=== PATIENT | female | born 1960 | race American Indian/Alaskan Native ===

== ENCOUNTER 2016-11-14 13:35 | Emergency (ER) | payer MEDICAID ==
[2016-11-14 13:53] VITALS: PULSE 52; RESP 18; TEMP 98.5
--- NOTE | 2016-11-14 14:30 | ED PDOC ---
Arrival/HPI - General Chief Complaint: Back Pain Time Seen by Provider: 11/14/16 14:09 Historian: Patient - History of Present Illness Narrative History of Present Illness (Text): 11/14/16 14:29 A 56 year old female presents to the emergency department complaining of left lower back pain for the past 3 weeks. Patient notes radiating pain down her left lower extremity and left shoulder pain. Patient states her pain is exacerbating with ambulation and relieved at rest. Patient denies any trauma, fever, nausea, vomiting, diarrhea, abdominal pain, urinary symptoms, chest pain , shortness of breath or any other complaints. PMD: Dr. Armenta Time/Duration: Other (3 weeks) Symptom Course: Unchanged Quality: Other Context: Other Past Medical History - Provider Review Nursing Documentation Reviewed: Yes - Infectious Disease Hx of Infectious Diseases: None - Cardiac Hx Hypertension: Yes Other/Comment: Bradycardic. Valve problem unsure as per patient. - Psychiatric Hx Substance Use: No - Surgical History Hx Section: Yes Family/Social History - Physician Review Nursing Documentation Reviewed: Yes Family/Social History: No Known Family HX Smoking Status: Never Smoked Hx Alcohol Use: No Hx Substance Use: No Allergies/Home Meds Allergies/Adverse Reactions: Allergies No Known Allergies Allergy (Verified 03/15/16 10:06) Home Medications: Home Meds Medication Instructions Recorded Confirmed Lisinopril 12.5 mg PO DAILY 01/29/15 10/14/15 Lisinopril [Prinivil] 12.5 mg PO DAILY 11/14/16 11/14/16 Review of Systems - Physician Review All systems were reviewed & negative as marked: Yes - Review of Systems Constitutional: absent: Fevers Respiratory: absent: SOB Cardiovascular: absent: Chest Pain Gastrointestinal: absent: Abdominal Pain, Diarrhea, Nausea, Vomiting Genitourinary Female: absent: Dysuria, Frequency, Hematuria, Urine Output Changes Musculoskeletal: Back Pain (Left lower back pain radiating down left lower extremity, Left shoulder pain) Physical Exam Vital Signs Reviewed: Yes Vital Signs Temp Pulse Resp BP Pulse Ox 11/14/16 13:45 98.5 F 52 L 18 170/89 H 100 Temperature: Afebrile Blood Pressure: Hypertensive Pulse: Bradycardic Respiratory Rate: Normal Appearance: Positive for: Well-Appearing, Non-Toxic, Comfortable Pain Distress: None Mental Status: Positive for: Alert and Oriented X 3 - Systems Exam Head: Present: Atraumatic, Normocephalic Pupils: Present: PERRL Extroacular Muscles: Present: EOMI Conjunctiva: Present: Normal Mouth: Present: Moist Mucous Membranes Neck: Present: Normal Range of Motion Respiratory/Chest: Present: Clear to Auscultation, Good Air Exchange. No: Respiratory Distress, Accessory Muscle Use Cardiovascular: Present: Regular Rate and Rhythm, Normal S1, S2. No: Murmurs Abdomen: Present: Normal Bowel Sounds. No: Tenderness, Distention, Peritoneal Signs Back: Present: Paraspinal Tenderness (Mild thoracic paraspinal tenderness), Other (Left lower lumbar tenderness, No sciatic notch tenderness) Upper Extremity: Present: Normal Inspection, Normal ROM, NORMAL PULSES, Neurovascularly Intact. No: Cyanosis, Edema, Tenderness, Swelling, Erythema, Temperature Abnormalties, Deformity Lower Extremity: Present: NORMAL PULSES, Normal ROM, Tenderness (Left thigh tenderness), Neurovascularly Intact. No: Edema, Swelling, Erythema, Deformity, Temperature Abnormalties Neurological: Present: GCS=15, CN II-XII Intact, Speech Normal Skin: Present: Warm, Dry, Normal Color. No: Rashes Psychiatric: Present: Alert, Oriented x 3, Normal Insight, Normal Concentration Medical Decision Making ED Course and Treatment: 11/14/16 14:29 Impression: A 56 year old female with left lower back pain radiating down left lower extremity. Patient notes left shoulder pain. She denies any trauma or other complaints. Differential Diagnosis included but are not limited to: Musculoskeletal Plan: -- D-dimer -- Motrin -- Reassess and disposition Progress Notes: EKG shows sinus bradycardia at 45 BPM with LVH, no changes from prior on or 10/15/15. Interpreted by me. 11/14/16 16:38 Patient's dimer is negative. Patient feels better and is able to ambulate. She will be discharged home with motrin and if needed flexeril PRN. - Lab Interpretations Lab Results: Lab Results 11/14/16 15:38: D-Dimer, Quantitative 0.39 - Medication Orders Current Medication Orders: Discontinued Medications Ibuprofen (Motrin Tab) 600 mg PO STAT STA Stop: 11/14/16 14:54 Last Admin: 11/14/16 15:20 Dose: 600 MG MAR Pain/Vitals Document 11/14/16 15:20 MANAGER OF PROGRAM (Rec: 11/14/16 15:22 [facility] [id number]) Pain Reassessment Is This A Pain ReAssessment? No - Scribe Statement The provider has reviewed the documentation as recorded by the Scribpedro Kruger Provider Scribe Attestation: All medical record entries made by the Scribe were at my direction and personally dictated by me. I have reviewed the chart and agree that the record accurately reflects my personal performance of the history, physical exam, medical decision making, and the department course for this patient. I have also personally directed, reviewed, and agree with the discharge instructions and disposition. Disposition/Present on Arrival - Present on Arrival Any Indicators Present on Arrival: No History of DVT/PE: No History of Uncontrolled Diabetes: No Urinary Catheter: No History of Decub. Ulcer: No History Surgical Site Infection Following: None - Disposition Have Diagnosis and Disposition been Completed?: Yes Diagnosis: Low back strain Disposition: HOME/ ROUTINE Disposition Time: 16:39 Patient Plan: Discharge Patient Problems: Current Active Problems Problem Status Diagnosed Low back strain Chronic Condition: IMPROVED Discharge Instructions (ExitCare): Sciatica (ED), Lumbar Radiculopathy (ED) Additional Instructions: Vaughn, thank you for letting us take care of you today. Your provider was Dr. Mclaughlin. You were treated for Back Pain, Sciatica The emergency medical care you received today was directed at your acute symptoms. If you were prescribed any medication, please fill it and take as directed. It may take several days for your symptoms to resolve. Return to the Emergency Department if your symptoms worsen, do not improve, or if you have any other problems. Please contact your doctor or call one of the physicians/clinics you have been referred to that are listed on the Patient Visit Information form that is included in your discharge packet. Bring any paperwork you were given at discharge with you along with any medications you are taking to your follow up visit. Our treatment cannot replace ongoing medical care by a primary care provider (PCP) outside of the emergency department. Thank you for allowing the [facility] team to be part of your care today. If you had an X-Ray or CT scan: A Radiologist will review the ED reading if any change in treatment is needed we will contact you. If you had a blood, urine, or wound culture: It will take several days for the results, if any change in treatment is needed we will contact you. If you had an STI test: It will take 48 hours for the results. Please call after 1 week if you have not heard back. Prescriptions: Cyclobenzaprine [Flexeril] 5 mg PO Q8 #7 tab Ibuprofen [Motrin] 600 mg PO Q6 PRN #30 tab PRN Reason: Pain, Moderate (4-7) Referrals: Tramaine Armenta MD [Primary Care Provider] - Follow up with primary Forms: WORK NOTE
[2016-11-14 17:17] VITALS: BP 169/99; O2SAT 97
--- NOTE | 2016-11-14 17:59 | CARD ---
APPROVED REPORT EKG Measurement Heart [id number] <Conclusion> Marked sinus bradycardia with sinus arrhythmia Moderate voltage criteria for LVH, may be normal variant Nonspecific T wave abnormality Abnormal ECG
== END 2016-11-14 17:36 | disposition home or self-care (01) ==
LOC: ED 13:35 → MERGE 13:35 → ED 17:36
DX: S39.012A Strain of muscle, fascia and tendon of lower back, initial encounter (principal); X58.XXXA Exposure to other specified factors, initial encounter